=== PATIENT | male | born 1995 | race Caucasian/White ===

== ENCOUNTER 2017-05-28 20:10 | Emergency (ER) | payer BC ==
[~2017-05-28] VITALS: Ht 160 cm; Wt 68.0 kg
[~2017-05-28 20:10] MED LIST: ALBU90OI; ALBU90OI61 INH; CEPH250A PO; DIPATR PO; MONT4; MULTCH; ONDA4ODT MM; RANI150; RANI150 PO
[2017-05-28] MEDS ORDERED: OMEPRAZOLE MAGN20 MG PO (20:38)
[2017-05-28] MEDS ORDERED: ERYT1OIN RIGHTEYE (20:40)
== END 2017-05-28 20:50 | disposition home or self-care (01) ==
LOC: ER 20:10
DX: T15.12XA Foreign body in conjunctival sac, left eye, initial encounter (principal); Z88.8 Allergy status to other drugs, medicaments and biological substances; J45.909 Unspecified asthma, uncomplicated; F17.200 Nicotine dependence, unspecified, uncomplicated; X58.XXXA Exposure to other specified factors, initial encounter
CPT/HCPCS: 65222; 99283

== ENCOUNTER 2019-06-03 20:38 | Emergency (ER) | payer BC ==
[~2019-06-03] VITALS: Ht 167.6 cm; Wt 63.5 kg
[~2019-06-03 20:38] MED LIST changes: +ERYT1OIN RIGHTEYE; +OMEPRAZOLE MAGN20 MG PO
== END 2019-06-03 22:40 | disposition home or self-care (01) ==
LOC: ER 20:38
DX: R09.1 Pleurisy (principal); J45.909 Unspecified asthma, uncomplicated; F17.200 Nicotine dependence, unspecified, uncomplicated; Z88.8 Allergy status to other drugs, medicaments and biological substances; Z79.899 Other long term (current) drug therapy
CPT/HCPCS: 71046; 93005; 93010; 96372; 99283-25; J1885

== ENCOUNTER 2019-12-15 00:21 | Emergency (ER) | payer BC ==
[~2019-12-15] VITALS: Ht 170.2 cm; Wt 77.1 kg
== END 2019-12-15 01:43 | disposition home or self-care (01) ==
LOC: ER 00:21
DX: S93.402A Sprain of unspecified ligament of left ankle, initial encounter (principal); F17.200 Nicotine dependence, unspecified, uncomplicated; Z88.8 Allergy status to other drugs, medicaments and biological substances; Z79.899 Other long term (current) drug therapy; X50.1XXA Overexertion from prolonged static or awkward postures, initial encounter; Y93.01 Activity, walking, marching and hiking
CPT/HCPCS: 73610; 99283-25